=== PATIENT | female | born 1975 | race African-American/Black ===

== ENCOUNTER 2018-11-22 12:03 | Emergency (ER) | payer OTHER ==
[~2018-11-22] VITALS: Ht 170.2 cm; Wt 81.8 kg
[2018-11-22] MEDS ORDERED: TIZA4TAB4 PO (12:33)
[2018-11-22] MEDS ORDERED: MORP10CA7 PO (12:33)
[2018-11-22] MEDS ORDERED: VENL-193 PO (12:33)
[2018-11-22] MEDS ORDERED: PANT40TA25 PO (12:33)
[2018-11-22] MEDS ORDERED: FAMO20 PO (12:33)
[2018-11-22] MEDS ORDERED: GABA-533 PO (12:33)
[2018-11-22] MEDS ORDERED: PERCT10 PO (12:33)
[2018-11-22] MEDS ORDERED: IBUP-2071 PO (12:33)
[2018-11-22 14:15] VITALS: BP 115/78
[2018-11-22] MEDS ORDERED: CYCLOBENZAPRINE HCL 10 MG TABLET PO ONE (15:00)
[2018-11-22] MEDS ORDERED: IBUPROFEN 600 MG TABLET PO ONE (15:00)
== END 2018-11-22 16:34 | disposition home or self-care (01) ==
LOC: EMS 12:08
DX: M25.511 Pain in right shoulder (principal); M25.521 Pain in right elbow; M54.6 Pain in thoracic spine; M19.90 Unspecified osteoarthritis, unspecified site; Z88.8 Allergy status to other drugs, medicaments and biological substances; Z79.899 Other long term (current) drug therapy; Z88.5 Allergy status to narcotic agent; V49.9XXA Car occupant (driver) (passenger) injured in unspecified traffic accident, initial encounter; Y93.89 Activity, other specified; Y92.488 Other paved roadways as the place of occurrence of the external cause; Y99.8 Other external cause status

== ENCOUNTER 2022-07-05 08:50 | Emergency (ER) | payer OTHER ==
[~2022-07-05] VITALS: Ht 167.6 cm; Wt 95.5 kg
[~2022-07-05 08:50] MED LIST: FAMO20 PO; GABA-1201 PO; IBUP-2071 PO; MORP10CA7 PO; OXYC-490 PO; PANT-31 PO; TIZA-330 PO; VENL-193 PO
[2022-07-05 08:53] VITALS: BP 109/79
== END 2022-07-05 11:56 | disposition home or self-care (01) ==
LOC: EMS 09:05
DX: M79.672 Pain in left foot (principal); M79.671 Pain in right foot; M19.90 Unspecified osteoarthritis, unspecified site; N80.9 Endometriosis, unspecified; M79.7 Fibromyalgia; Z98.890 Other specified postprocedural states; Z88.5 Allergy status to narcotic agent
CPT/HCPCS: 99282; Z7502

== ENCOUNTER 2022-09-22 21:59 | Emergency (ER) | payer OTHER ==
[~2022-09-22] VITALS: Ht 170.2 cm; Wt 97.7 kg
[~2022-09-22 21:59] MED LIST changes: +IBUP-1493 PO; -IBUP-2071 PO
[2022-09-23] MEDS ORDERED: LIDOCAINE 5% TRANSDERMAL PATCH TD ONE (02:45)
[2022-09-23] MEDS ORDERED: KETOROLAC TROMETHAMINE 60 MG/2 ML VIAL IM ONE (02:45)
[2022-09-23 03:10] VITALS: BP 121/86
== END 2022-09-23 04:07 | disposition home or self-care (01) ==
LOC: EMS 22:00
DX: G89.29 Other chronic pain (principal); M54.50 Low back pain, unspecified; M54.30 Sciatica, unspecified side; M79.7 Fibromyalgia; M19.90 Unspecified osteoarthritis, unspecified site; Z98.890 Other specified postprocedural states; Z90.710 Acquired absence of both cervix and uterus; Z88.8 Allergy status to other drugs, medicaments and biological substances
CPT/HCPCS: 99283; 96372; J1885